=== PATIENT | male | born 1950 | race Caucasian/White ===

== ENCOUNTER 2019-01-13 03:06 | Inpatient (IN) ==
--- NOTE | 2019-01-05 08:38 | EKG Report ---
Test Performed on : 01/05/2019 08:30:03 AM Test Reason : PAT Blood Pressure : / mmHG Vent. Rate : 089 BPM Atrial Rate : 089 BPM P-R Int : 170 ms QRS Dur : 100 ms QT Int : 364 ms P-R-T Axes : 056 087 107 degrees QTc Int : 442 ms Normal sinus rhythm. with sinus arrhythmia. Nonspecific ST and T wave abnormality Abnormal ECG When compared with ECG of 11-JAN-2018 14:03, No significant change was found Unconfirmed Result
[2019-01-05 09:00] LABS: BASO# 0.02 X1000 (0.0-0.2); BASO% 0.2 % (0.0-0.8); HEMATOCRIT 40.2 % (42.0-52.0); HEMOGLOBIN 13.7 g/dL (14.0-18.0); IMM GRAN# 0.02 X1000 (0.0-0.04); IMM GRAN% 0.2 % (0.0-0.5); LYMPH# 1.38 X1000 (1.2-3.4); LYMPH% 17.1 % (20.5-51.1); MCH 29.7 PG (27-31); MCHC 34.1 g/dL (33-37); MCV 87.2 FL (81-99); MONO# 0.87 X1000 (0.11-0.59); MONO% 10.8 % (1.7-9.3); MPV 8.8 FL (7.4-10.4); NEUT# 5.76 X1000 (1.4-6.5); NEUT% 71.7 % (42.2-75.2); PLT 269 X1000 (130-400); RBC 4.61 XMIL (4.7-6.1); RDW 13.6 % (11.5-14.5); WBC 8.05 X1000 (4.8-10.8)
--- NOTE | 2019-01-05 09:05 | Diag Imaging Result Doc PS360 ---
EXAM: CHEST-2 VIEWS 01/05/2019 HISTORY: PAT TECHNIQUE: PA and lateral chest COMMENT: There are sternotomy wires. There are anterior surgical clips. There is no evidence of acute cardiac or pulmonary disease. There are no previous studies. IMPRESSION: No acute abnormality. Electronically signed by Deng Hall 01/05/2019 9:03 AM
[2019-01-05 09:19] LABS: AGAP 14; ALB/GLOB RATIO 1.5; ALBUMIN 4.5 g/dL (3.5-5.0); ALKALINE PHOSPHATASE 96 U/L (32-122); BUN 22 mg/dL (8-22); CALCIUM 10.9 mg/dL (8.8-10.2); CHLORIDE 100 mmol/L (98-107); COSMO 284; ESTIMATED GFR > 60; GLUCOSE 126 mg/dL (70-104); GOT 31 U/L (10-34); GPT 35 U/L (10-44); POTASSIUM 4.5 mmol/L (3.5-5.1); SODIUM 140 mmol/L (136-145); TCO2 26 mmol/L (25-35); TOTAL BILIRUBIN 0.88 mg/dL (0.20-1.00); TOTAL PROTEIN 7.6 g/dL (6.3-8.3)
[2019-01-13] MEDS ORDERED: PEPCID ONE (05:33)
[2019-01-13] MEDS ORDERED: LR 1,000 ML ONE (05:34)
[2019-01-13] MEDS ORDERED: REGLAN ONE (05:34)
[2019-01-13] MEDS ORDERED: MEFOXIN 1 GM/D5W 1 GM/50 ML IVPB ONE (05:35)
[2019-01-13] MEDS: ENTEREG ONE ×2 (05:41→05:45)
[2019-01-13] MEDS ORDERED: ENTEREG ONE (05:49)
[2019-01-13] MEDS ORDERED: FLAGYL 1000 MG/NS 1,000 MG/200 ML IVPB IV ONE (06:00)
[2019-01-13] MEDS ORDERED: XYLOCAINE-MPF 2% ONE (06:29)
[2019-01-13] MEDS ORDERED: FENTANYL ONE (06:29)
[2019-01-13] MEDS ORDERED: ZOFRAN ONE (06:29)
[2019-01-13] MEDS ORDERED: DECADRON ONE (06:29)
[2019-01-13] MEDS ORDERED: ROBINUL ONE (06:29)
[2019-01-13] MEDS ORDERED: DIPRIVAN 1% ONE (06:30)
[2019-01-13] MEDS ORDERED: ZEMURON ONE (06:35)
[2019-01-13] MEDS ORDERED: MARCAINE 0.25% ONE (06:48)
[2019-01-13] MEDS ORDERED: SODIUM CHLORIDE 0.9% 10 ML ONE (06:49)
[2019-01-13] MEDS ORDERED: EXPAREL 1.3% ONE (06:49)
[2019-01-13] MEDS ORDERED: QUELICIN (DOSE) ONE (07:09)
[2019-01-13 07:48] LABS: URINE SOURCE CATH
[2019-01-13 07:53] LABS: BILIRUBIN URINE NEGATIVE (NEGATIVE); BLOOD URINE NEGATIVE (NEGATIVE); COLOR YELLOW; GLUCOSE URINE NEGATIVE (NEGATIVE); KETONE URINE TRACE mg/dL (NEGATIVE); LEUKOCYTES URINE NEGATIVE (NEGATIVE); NITRITE URINE NEGATIVE (NEGATIVE); PH URINE 5.5; PROTEIN URINE TRACE mg/dL (NEGATIVE); SP GRAVITY URINE 1.009; TURBIDITY URINE CLEAR (CLEAR); UROBILINOGEN URINE NORMAL (NORMAL)
[2019-01-13 07:56] LABS: UR EPITHELIAL CELLS <10 /HPF (<10); URINE BACTERIA NEGATIVE /HPF; URINE RBC <10 /HPF (<10); URINE WBC <10 /HPF (<10)
[2019-01-13] MEDS ORDERED: OFIRMEV 1000 MG/ISOTONIC SOLN 1,000 MG/100 ML BOTTLE ONE (07:59)
[2019-01-13] MEDS ORDERED: NEOSTIGMINE ONE (08:01)
[2019-01-13 08:08] LABS: URINE YEAST NONE SEEN
[2019-01-13] MEDS ORDERED: DILAUDID ONE (09:27)
[2019-01-13] MEDS ORDERED: 1/2 NS 1,000 ML ONE (09:53)
[2019-01-13] MEDS ORDERED: ZOFRAN IV PRN (10:00)
[2019-01-13] MEDS ORDERED: NARCAN IV PRN (10:00)
[2019-01-13] MEDS ORDERED: DILAUDID-HP 30 MG in NS 27 ML IV PRN (10:00)
[2019-01-13] MEDS ORDERED: BENADRYL IV PRN (10:00)
[2019-01-13] MEDS ORDERED: NARCAN 0.4 MG in LR 1,000 ML IV PRN (10:00)
[2019-01-13] MEDS ORDERED: HUMULIN R SUBQ ONE (10:00)
[2019-01-13] MEDS ORDERED: LR 500 ML ONE (12:52)
--- NOTE | 2019-01-13 15:29 | OPERATIVE NOTE ---
PROCEDURE DATE: 01/13/2019 PREOP: Carcinoma and ulcerated polyp in sigmoid colon previously marked with a tattoo on colonoscopy by Dr. Elias. PROCEDURE: 1. Exploratory laparotomy. 2. Sigmoid resection. 3. Ohev-[id number] anastomosis. 4. Frozen section of the ulcerated polyp area. DESCRIPTION OF PROCEDURE: The patient brought to the operating room after satisfactory induction of IV and endotracheal anesthesia. Mao catheter was placed. She was placed in the exenteration stirrups. Anesthesiologist performed a TAP block. His abdomen was subsequently broadly prepped and draped in the appropriate manner. There was palpable mesh at the umbilicus from previous umbilical hernia repair. An infraumbilical to pubis midline incision was taken sharply down through skin and subcutaneous tissue. Fascia was incised in the midline. The peritoneum was grasped and entered. The sigmoid somewhat prolapsed out as it was quite distended. Exploration revealed no evidence of hepatic metastases. There were some adhesions in the umbilicus area from previous umbilical hernia repair mostly involving omentum without any evidence of small bowel involvement. The sigmoid colon was mobilized. The tattoo was visualized. There was no palpable tumor in the area. An area proximal 5 cm in distal, 5 cm from the tattoo was divided with a TALIA stapler. Mesenteric attachments were taken down with the LigaSure instrument. Suture was used to christiano the proximal border. The specimen was opened as it was nothing grossly palpable or visible. There was an ulcerated area that was marked with a suture. This was sent for frozen section revealing significant atypia and probable cancer on the permanent sections. A iann-dm-nedo anastomosis was subsequently performed with a TALIA stapler and topped off with a TA 45. Mesenteric defect was closed with interrupted 2-0 silk. The anastomosis was somewhat bossed with interrupted 2-0 silk as well. The anastomosis would admit the tip of 2 fingers without difficulty. On completion and after accounting for all laparotomy sponges, closure was subsequently initiated after wound irrigation. The peritoneum was closed in a single running layer of #1 Vicryl. The fascia was closed with interrupted #1 Maxon. Subcutaneous was debrided and closed with 3-0 Vicryl and the skin itself with stainless steel clips. Sterile dressing was applied. The patient was subsequently awakened and extubated in the operating room and transferred to recovery. ESTIMATED BLOOD LOSS: Was around 100 mL. cc: Toi De Jesus MD
[2019-01-13] MEDS: LR 1,000 ML IV SCH (16:13)
[2019-01-13] MEDS: MEFOXIN 1 GM/NS 1 GM/50 ML IVPB IV SCH (17:20)
[2019-01-13] MEDS: HUMULIN R SUBQ SCH ×2 (17:21→22:18)
[2019-01-13] MEDS: 1/2 NS 1,000 ML IV SCH (22:18)
[2019-01-13] MEDS: PERIDEX MT SCH (22:18)
[2019-01-13] MEDS: FLAGYL 1000 MG/NS 1,000 MG/200 ML IVPB IV SCH (22:18)
[2019-01-14] MEDS: MEFOXIN 1 GM/NS 1 GM/50 ML IVPB IV SCH ×2 (01:45→09:07)
[2019-01-14] MEDS: 1/2 NS 1,000 ML IV SCH ×3 (02:56→23:25)
[2019-01-14] MEDS: FLAGYL 1000 MG/NS 1,000 MG/200 ML IVPB IV SCH ×2 (04:45→13:12)
[2019-01-14] MEDS: HUMULIN R SUBQ SCH ×4 (06:53→22:31)
[2019-01-14 07:09] LABS: BASO# 0.01 X1000 (0.0-0.2); BASO% 0.1 % (0.0-0.8); HEMATOCRIT 33.8 % (42.0-52.0); HEMOGLOBIN 11.6 g/dL (14.0-18.0); IMM GRAN# 0.02 X1000 (0.0-0.04); IMM GRAN% 0.2 % (0.0-0.5); LYMPH# 1.22 X1000 (1.2-3.4); LYMPH% 14.8 % (20.5-51.1); MCH 29.8 PG (27-31); MCHC 34.3 g/dL (33-37); MCV 86.9 FL (81-99); MONO# 1.13 X1000 (0.11-0.59); MONO% 13.7 % (1.7-9.3); MPV 9.6 FL (7.4-10.4); NEUT# 5.84 X1000 (1.4-6.5); NEUT% 71.2 % (42.2-75.2); PLT 246 X1000 (130-400); RBC 3.89 XMIL (4.7-6.1); RDW 13.5 % (11.5-14.5); WBC 8.22 X1000 (4.8-10.8)
[2019-01-14 08:12] LABS: AGAP 11; BUN 12 mg/dL (8-22); CALCIUM 8.7 mg/dL (8.8-10.2); CHLORIDE 103 mmol/L (98-107); COSMO 283; ESTIMATED GFR > 60; GLUCOSE 167 mg/dL (70-104); POTASSIUM 4.2 mmol/L (3.5-5.1); SODIUM 140 mmol/L (136-145); TCO2 26 mmol/L (25-35)
[2019-01-14] MEDS: PERIDEX MT SCH ×2 (09:07→22:31)
[2019-01-14] MEDS: LR 1,000 ML IV SCH (15:16)
[2019-01-14] MEDS ORDERED: IBUPROFEN 200 MG PO PRN (21:42)
[2019-01-14] MEDS: LOPRESSOR PO SCH (22:12)
[2019-01-14] MEDS: ENTEREG PO SCH (22:30)
[2019-01-14] MEDS: LIPITOR PO SCH (23:21)
[2019-01-15] MEDS: HUMULIN R SUBQ SCH ×3 (06:27→23:29)
[2019-01-15 06:46] LABS: BASO# 0.02 X1000 (0.0-0.2); BASO% 0.3 % (0.0-0.8); HEMATOCRIT 32.3 % (42.0-52.0); HEMOGLOBIN 10.9 g/dL (14.0-18.0); LYMPH# 1.45 X1000 (1.2-3.4); LYMPH% 20.8 % (20.5-51.1); MCH 29.9 PG (27-31); MCHC 33.7 g/dL (33-37); MCV 88.5 FL (81-99); MONO# 0.94 X1000 (0.11-0.59); MONO% 13.5 % (1.7-9.3); MPV 9.5 FL (7.4-10.4); NEUT# 4.56 X1000 (1.4-6.5); NEUT% 65.4 % (42.2-75.2); PLT 223 X1000 (130-400); RBC 3.65 XMIL (4.7-6.1); WBC 6.97 X1000 (4.8-10.8)
[2019-01-15 07:38] LABS: AGAP 11; BUN 6 mg/dL (8-22); CALCIUM 8.6 mg/dL (8.8-10.2); CHLORIDE 109 mmol/L (98-107); COSMO 289; CREATININE 0.9 mg/dL (0.7-1.2); ESTIMATED GFR > 60; GLUCOSE 208 mg/dL (70-104); POTASSIUM 3.9 mmol/L (3.5-5.1); SODIUM 143 mmol/L (136-145); TCO2 23 mmol/L (25-35)
[2019-01-15] MEDS ORDERED: ZINC PO SCH (09:00)
[2019-01-15] MEDS ORDERED: THERA M PLUS PO SCH (09:00)
[2019-01-15] MEDS ORDERED: POTASSIUM GLUCONATE PO SCH (09:00)
[2019-01-15] MEDS ORDERED: NORCO-10 PO PRN (09:33)
[2019-01-15] MEDS ORDERED: NS 0 ML ONE (09:50)
[2019-01-15] MEDS: VICON-C PO SCH (09:51)
[2019-01-15] MEDS: FOLIC ACID PO SCH (09:52)
[2019-01-15] MEDS: MAG-OX PO SCH (09:52)
[2019-01-15] MEDS: ENTEREG PO SCH ×2 (09:52→20:09)
[2019-01-15] MEDS: HYZAAR 50/12.5 MG PO SCH (09:53)
[2019-01-15] MEDS: ZANTAC PO SCH (09:53)
[2019-01-15] MEDS: VITAMIN D PO SCH (09:54)
[2019-01-15] MEDS: JANUVIA PO SCH ×2 (09:54→20:09)
[2019-01-15] MEDS: PLAVIX PO SCH (09:54)
[2019-01-15] MEDS: LOPRESSOR PO SCH ×2 (09:54→20:09)
[2019-01-15] MEDS: LEVEMIR SUBQ SCH (09:56)
[2019-01-15] MEDS: NIASPAN PO SCH (09:57)
[2019-01-15] MEDS: VICTOZA SUBQ SCH (09:57)
[2019-01-15] MEDS: PERIDEX MT SCH ×2 (09:57→20:09)
[2019-01-15] MEDS: VITAMIN A PO SCH (12:09)
[2019-01-15] MEDS: 1/2 NS 1,000 ML IV SCH ×2 (12:10→12:12)
[2019-01-15] MEDS: LIPITOR PO SCH (20:09)
[2019-01-15] MEDS: ZOFRAN PO PRN (20:15)
[2019-01-15] MEDS ORDERED: CLARITIN PO SCH (21:00)
[2019-01-16] MEDS: HUMULIN R SUBQ SCH ×2 (06:15→12:22)
[2019-01-16] MEDS ORDERED: INSULIN PEN NEEDLES ONE (07:15)
[2019-01-16] MEDS: 1/2 NS 1,000 ML IV SCH (09:18)
[2019-01-16] MEDS: ZANTAC PO SCH (09:18)
[2019-01-16] MEDS: HYZAAR 50/12.5 MG PO SCH (09:19)
[2019-01-16] MEDS: NIASPAN PO SCH (09:20)
[2019-01-16] MEDS: LOPRESSOR PO SCH (09:21)
[2019-01-16] MEDS: ENTEREG PO SCH (09:21)
[2019-01-16] MEDS: JANUVIA PO SCH (09:21)
[2019-01-16] MEDS: ZOFRAN PO PRN (09:21)
[2019-01-16] MEDS: VITAMIN D PO SCH (09:21)
[2019-01-16] MEDS: PLAVIX PO SCH (09:21)
[2019-01-16] MEDS: MAG-OX PO SCH (09:22)
[2019-01-16] MEDS: PERIDEX MT SCH (09:22)
[2019-01-16] MEDS: FOLIC ACID PO SCH (09:22)
[2019-01-16] MEDS: VICTOZA SUBQ SCH (09:23)
[2019-01-16] MEDS: VICON-C PO SCH (09:23)
[2019-01-16] MEDS: LEVEMIR SUBQ SCH (09:23)
[2019-01-16] MEDS: VITAMIN A PO SCH (09:24)
[2019-01-16 12:08] VITALS: BP 134/80
--- NOTE | 2019-02-01 12:06 | DISCHARGE SUMMARY ---
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 PROCEDURE: Sigmoid resection. The patient is a 68-year-old, white male with history of rectal bleeding. Dr. Elias performed a colonoscopy and biopsied a flat lesion in the rectosigmoid area revealing adenocarcinoma. He underwent an outpatient mechanical and chemical bowel prep and was admitted on the day of surgery. A sigmoid resection was performed with incorporation of the mass. It was a flat sessile lesion that did reveal adenocarcinoma eventually with no evidence of metastatic lymph nodes. A [id number]-[id number] anastomosis was performed at the time of surgery. Hospitalization was largely uneventful. He was able to pass his water after Mao removal. He tolerated his dietary advancements well and his wound appeared to be healing nicely. He was subsequently allowed home on 01/16/2019 to be seen in the office in 1 week's time. DISCHARGE MEDICATIONS: 1. [place]. 2. Flomax. 3. Colace. 4. Multivitamins. cc: Toi De Jesus MD
== END 2019-01-16 15:06 | disposition home or self-care (01) | DRG 331 ==
LOC: SURHOLD 03:06 → 4N 15:01
PROVIDERS: ADMIT Surgery; ATTEND Surgery
CPT/HCPCS: 71020; 71046; 80048; 80053; 81001; 82378; 82948; 85025; 86850; 86900; 86901; 88304; 88309; 88313; 88331; 93005; 93010; 94761; 94799; A9270; C9290; J0131; J0330; J0694; J1100; J1170; J2405; J3010; J7030; J7120; S0020; S0030; XXXXX